=== PATIENT | male | born 1985 | race Caucasian/White ===

== ENCOUNTER 2018-10-10 11:25 | Emergency (ER) | payer SELFPAY ==
[~2018-10-10] VITALS: Ht 175.3 cm; Wt 61.2 kg
[2018-10-10 11:55] VITALS: BP 135/63
--- NOTE | 2018-10-10 12:03 | ED EENT ---
History of Present Illness General Chief Complaint: Dental Problems/Pain Stated Complaint: DENTAL PAIN Nursing Triage Note: States tooth broke 3 days ago on left side and is now having pain from left jaw radiating to left ear. Pain is rated at 10/10. Has taken tylenol, ibuprofen, and excedrin with little relief. Source: patient History of Present Illness Date Seen by Provider: Oct 10, 2018 Time Seen by Provider: 11:29 Initial Comments 33 yo M presenting with left mandibular pain from broken tooth that is shooting up to his ear and getting worse in the last 3 days. He denies fever or chills. He has widespread dental decay. He has some swelling to his gums on the left mandible around the broken tooth. No drainage from the tooth. He has no dentist. he has no pcp. He denies any allergies to medicines. He has been trying ibuprofen, tylenol and excedrin with little to no relief in pain. Allergies and Home Medications Allergies Coded Allergies: No Known Drug Allergies (Unverified , 10/10/18) Home Medications Amoxicillin 500 Mg Capsule, 500 MG PO TID Prescribed by: FRANKI MC on 10/10/18 1205 Ibuprofen 800 Mg Tablet, 800 MG PO Q8H PRN for PAIN Prescribed by: FRANKI MC on 10/10/18 1205 Tramadol HCl 50 Mg Tablet, 50 MG PO Q6H PRN for PAIN Prescribed by: FRANKI MC on 10/10/18 1205 Patient Home Medication List Home Medication List Reviewed: Yes Review of Systems Review of Systems Constitutional: No chills, No fever Eyes: No Symptoms Reported Ears: No Symptoms Reported Nose: no symptoms reported Mouth: see HPI Throat: no symptoms reported Respiratory: no symptoms reported Cardiovascular: no symptoms reported Gastrointestinal: no symptoms reported Musculoskeletal: no symptoms reported Skin: no symptoms reported Neurological: No Symptoms Reported Hematologic/Lymphatic: No Symptoms Reported Past Dozcpff-Ophjam-Vaaxzc Hx Past Med/Social Hx: Reviewed Nursing Past Med/Soc Hx Patient Social History Alcohol Use: Occasionally Uses Recreational Drug Use: No Smoking Status: Current Everyday Smoker Type Used: Cigarettes 2nd Hand Smoke Exposure: Yes Recent Foreign Travel: No Contact w/Someone Who Travel: No Recent Infectious Disease Expo: No Recent Hopitalizations: No Physical Abuse: No Sexual Abuse: No Mistreated: No Fear: No Seasonal Allergies Seasonal Allergies: No Past Medical History Surgeries: No Respiratory: No Cardiac: No Neurological: No Genitourinary: No Gastrointestinal: No Musculoskeletal: No Endocrine: No HEENT: No Cancer: No Psychosocial: No Integumentary: No Physical Exam Vital Signs Vital Signs - First Documented 10/10/18 11:32 Temp 96.9 Pulse 80 Resp 18 B/P (MAP) 135/63 (87) Pulse Ox 80 Height, Weight, BMI Height: 5'9.00" Weight: 135lbs. oz. [id number]; BMI Method:Stated General Appearance: WD/WN, mild distress Eyes: bilateral eye PERRL, bilateral eye EOMI Ears: bilateral ear auricle normal, bilateral ear canal normal, bilateral ear TM normal Mouth/Throat: pharynx normal, dental tenderness, other (widespread dental decay with several broken and decayed teeth) Neck: non-tender, full range of motion, supple, normal inspection Cardiovascular: normal peripheral pulses, regular rate, rhythm Respiratory: chest non-tender, lungs clear, normal breath sounds Neurologic/Psychiatric: alert, oriented x 3 Skin: normal color, warm/dry Progress/Results/Core Measures Results/Orders Vital Signs/I&O 10/10/18 10/10/18 11:32 11:55 Temp 96.9 96.9 Pulse 80 80 Resp 18 18 B/P (MAP) 135/63 (87) 135/63 (87) Pulse Ox 80 80 Blood Pressure Mean: 87 Progress Progress Note : Progress Note will start on antibiotics and pain medicine. Refer to [facility] for clinic, continued pain medicine if needed and follow up with dental clinic from [facility] as well Departure Impression Primary Impression: Pain due to dental caries Additional Impressions: Broken tooth Qualified Codes: S02.5XXB - Fracture of tooth (traumatic), initial encounter for open fracture Dental caries Swelling of gums Dental abscess Disposition: HOME, SELF-CARE Condition: Stable Departure-Patient Inst. Decision time for Depature: 12:03 (12:03) Referrals: NO,LOCAL PHYSICIAN (PCP) Primary Care Physician [facility] Patient Instructions: Fractured Tooth (DC), Tooth Abscess (DC), Dental Pain (DC), Tooth Decay, Adult (DC) Add. Discharge Instructions: Take the antibiotics until gone. Follow up with [facility] for clinic and dental assistance to get help with your pain and dental care. Take the medicine to help with pain. The pain will get better in 48 to 72 hours as the antibiotics are kicking in. Call the Clinic on Friday to see about arranging an appointment for follow up and establishing care so they can help you take care of your pain and get your teeth taken care of as well. All discharge instructions reviewed with patient and/or family. Voiced understanding. Scripts Ibuprofen (Ibuprofen) 800 Mg Tablet 800 MG PO Q8H PRN for PAIN for 10 Days, #30 TAB 0 Refills Prov: FRANKI MC MD 10/10/18 Tramadol HCl (Tramadol HCl) 50 Mg Tablet 50 MG PO Q6H PRN for PAIN for 5 Days, #20 TAB 0 Refills Prov: FRANKI MC MD 10/10/18 Amoxicillin (Amoxicillin) 500 Mg Capsule 500 MG PO TID for 10 Days, #30 CAP 0 Refills Prov: FRANKI MC MD 10/10/18 Images Mouth/Nose 1 - Caries, Fracture Tooth, Swelling, Tenderness Progress caries present as well as fractured and tender tooth. gums are swollen around the teeth on mandible of lower left side. no purulent drainage noted FRANKI MC MD Oct 10, 2018 12:03
[2018-10-10] MEDS ORDERED: AMOX500C2 PO (12:05)
[2018-10-10] MEDS ORDERED: IBUP-1780 PO (12:05)
[2018-10-10] MEDS ORDERED: TRAM50TA2 PO (12:05)
== END 2018-10-10 12:13 | disposition home or self-care (01) ==
LOC: ER FS 11:27
DX: S02.5XXA Fracture of tooth (traumatic), initial encounter for closed fracture (principal); K02.9 Dental caries, unspecified; K04.7 Periapical abscess without sinus; F17.210 Nicotine dependence, cigarettes, uncomplicated; X58.XXXA Exposure to other specified factors, initial encounter
CPT/HCPCS: 99282

== ENCOUNTER 2022-01-25 18:10 | Emergency (ER) | payer OTHER ==
[~2022-01-25] VITALS: Ht 175 cm; Wt 63.0 kg
[~2022-01-25 18:10] MED LIST: AMOX500C2 PO; IBUP-1780 PO; TRM50T PO
[2022-01-25 18:19] VITALS: BP 144/67
[2022-01-25] MEDS ORDERED: LIDOCAINE 1% INJ 20 ML VIAL INJ ONE (18:45)
[2022-01-25] MEDS ORDERED: AZITHROMYCIN 250 MG TAB (ZITHROMAX) PO ONE (18:45)
[2022-01-25] MEDS ORDERED: cefTRIAXone 250 MG/2.5 ML ML IM ONE (18:45)
[2022-01-25] MEDS ORDERED: TRM50T PO (18:52)
--- NOTE | 2022-01-25 18:53 | ED GU-Male ---
General Chief Complaint: General Problems/Pain Stated Complaint: PAINFUL BUMP ON REAR Nursing Triage Note: Patient has presented to ER with cc of what he believes is an inflamed hemorrhoid. He reports the tenderness and swelling for the last week. He states that it is better today but continues to hurt. He has not taken anything for his symptoms. Source: patient Exam Limitations: no limitations History of Present Illness Date Seen by Provider: Jan 25, 2022 Time Seen by Provider: 18:00 Initial Comments Patient is a 36-year-old bisexual male presents with rectal pain for the past week. Patient reports what he believes to be an inflamed hemorrhoid. He has applied ointment cream but it is continued to hurt. He has not been evaluated by the health department or his PCP. No fever chills, sweats, back pain, penile discharge, testicular pain or tenderness. No other acute symptoms or complaints. Timing/Duration: just prior to arrival Severity/Quality: moderate Location: other (Rectal) Radiation: none Activities at Onset: other Sexual [place] History: other Modifying Factors: Improves With Other Associated Symptoms: other Allergies and Home Medications Allergies Coded Allergies: No Known Drug Allergies (Unverified , 10/10/18) Patient Home Medication List Home Medication List Reviewed: Yes Amoxicillin (Amoxicillin) 500 Mg Capsule, 500 MG PO TID Prescribed by: FRANKI MC on 10/10/18 1205 Ibuprofen (Ibuprofen) 800 Mg Tablet, 800 MG PO Q8H PRN for PAIN Prescribed by: FRANKI MC on 10/10/18 1205 Tramadol HCl (Tramadol HCl) 50 Mg Tablet, 50 MG PO Q6H PRN for PAIN Prescribed by: FRANKI MC on 10/10/18 1205 Review of Systems Review of Systems Constitutional: see HPI Genitourinary: see HPI Past Thmelbl-Jgkjzf-Iacane Hx Patient Social History Tobacco Use?: No Use of E-Cig and/or Vaping dev: No Substance use?: No Alcohol Use?: No Seasonal Allergies Seasonal Allergies: No Past Medical History Surgeries: No Respiratory: No Cardiac: No Neurological: No Genitourinary: No Gastrointestinal: No Musculoskeletal: No Endocrine: No HEENT: No Cancer: No Psychosocial: No Integumentary: No Physical Exam Vital Signs Vital Signs - First Documented 01/25/22 18:19 Temp 36.3 Pulse 110 Resp 16 B/P (MAP) 144/67 (92) Pulse Ox 98 O2 Delivery Room Air Capillary Refill : Height, Weight, BMI Height: 5'9.00" Weight: 135lbs. oz. 61.035412ba; 20.00 BMI Method:Stated General Appearance: WD/WN, no apparent distress Rectal: tenderness (Rectal lesion with painful chancre in the 9 o'clock position. No purulent discharge.) Progress/Results/Core Measures Suspected Sepsis SIRS Temperature: Pulse: 110 Respiratory Rate: 16 Blood Pressure 144 /67 Mean: 92 Results/Orders My Orders Orders - QING WELLS DO Ceftriaxone (Rocephin) (01/25/22 18:45) Lidocaine 1% Inj 20 Ml (Xylocaine 1% Inj (01/25/22 18:45) Azithromycin Tablet (Zithromax Tablet) (01/25/22 18:45) Medications Given in ED Current Medications Medications Dose Ordered Sig/Berry Route Start Time Stop Time Status Last Admin Dose Admin Azithromycin 2,000 mg ONCE ONCE PO 01/25/22 18:45 01/25/22 18:46 DC 01/25/22 18:40 2,000 MG Ceftriaxone Sodium 250 mg ONCE ONCE IM 01/25/22 18:45 01/25/22 18:46 DC 01/25/22 18:39 250 MG Lidocaine HCl 0.9 ml ONCE ONCE INJ 01/25/22 18:45 01/25/22 18:46 DC 01/25/22 18:41 0.9 ML Vital Signs/I&O 01/25/22 18:19 Temp 36.3 Pulse 110 Resp 16 B/P (MAP) 144/67 (92) Pulse Ox 98 O2 Delivery Room Air Capillary Refill : Blood Pressure Mean: 92 Departure Communication (Admissions) Painful rectal lesions with STD exposure. Empiric treatment given. Recommendations abstinence, supportive care and PCP/[facility] department follow-up. Impression Primary Impression: Rectal or anal pain Additional Impression: Rectal lesion Disposition: 01 HOME, SELF-CARE Condition: Stable Departure-Patient Inst. Decision time for Depature: 18:50 Referrals: NO,LOCAL PHYSICIAN (PCP/Family) Primary Care Physician Add. Discharge Instructions: You were evaluated in the emergency department for rectal pain. An ulcer, which may represent an ulcerated hemorrhoid or an infected lesion. May take ibuprofen for pain and tramadol as needed for additional relief. Please take newly prescribed medications as directed and follow-up with local PCP and/or health department for additional STD screening. All discharge instructions reviewed with patient and/or family. Voiced understanding. Scripts Tramadol HCl (Tramadol HCl) 50 Mg Tablet 50 MG PO Q6H PRN for PAIN for 3 Days, #12 TAB 0 Refills Prov: QING WELLS DO 01/25/22 QING WELLS DO Jan 25, 2022 18:53
== END 2022-01-25 18:56 | disposition home or self-care (01) ==
LOC: EDUNIT# 18:10 → ER FS 18:11
DX: K62.89 Other specified diseases of anus and rectum (principal)
CPT/HCPCS: 99284